=== PATIENT | female | born 1970 | race African-American/Black ===

== ENCOUNTER 2017-04-22 16:37 | Emergency (ER) | payer SELFPAY ==
[~2017-04-22] VITALS: Ht 167.6 cm; Wt 83.6 kg
[2017-04-22] MEDS ORDERED: SPIR25 PO (16:52)
[2017-04-22] MEDS ORDERED: HYDR25TA PO (16:52)
[2017-04-22] MEDS ORDERED: AMLO1TAB12 PO (16:52)
[2017-04-22 17:33] VITALS: BP 128/81
== END 2017-04-22 17:57 | disposition home or self-care (01) ==
LOC: EMS 16:39
DX: T63.481A Toxic effect of venom of other arthropod, accidental (unintentional), initial encounter (principal); S50.362A Insect bite (nonvenomous) of left elbow, initial encounter; S80.861A Insect bite (nonvenomous), right lower leg, initial encounter; L08.9 Local infection of the skin and subcutaneous tissue, unspecified; I10 Essential (primary) hypertension; W57.XXXA Bitten or stung by nonvenomous insect and other nonvenomous arthropods, initial encounter; Y93.89 Activity, other specified; Y92.89 Other specified places as the place of occurrence of the external cause; Y99.8 Other external cause status
CPT/HCPCS: 99283

== ENCOUNTER 2017-08-18 15:19 | Emergency (ER) | payer SELFPAY ==
[~2017-08-18] VITALS: Ht 167.6 cm; Wt 81.4 kg
[~2017-08-18 15:19] MED LIST: AMLO1TAB12 PO; HYDR25TA PO; SPIR25 PO
[2017-08-18 16:10] VITALS: BP 155/95
== END 2017-08-18 17:47 | disposition left against medical advice (07) ==
LOC: EMS 15:20
DX: S81.859A Open bite, unspecified lower leg, initial encounter (principal); Z53.21 Procedure and treatment not carried out due to patient leaving prior to being seen by health care provider

== ENCOUNTER 2018-03-31 08:02 | Emergency (ER) | payer OTHER ==
[~2018-03-31] VITALS: Ht 167.6 cm; Wt 77.3 kg
[2018-03-31] MEDS ORDERED: KETOROLAC TROMETHAMINE 30 MG/ML VIAL IM ONE (11:15)
[2018-03-31 11:38] VITALS: BP 137/96
== END 2018-03-31 11:49 | disposition home or self-care (01) ==
LOC: EMS 08:03
DX: M77.32 Calcaneal spur, left foot (principal); I10 Essential (primary) hypertension
CPT/HCPCS: 73630; 96372; 99284; J1885

== ENCOUNTER 2018-08-21 12:51 | Emergency (ER) | payer OTHER ==
[~2018-08-21] VITALS: Ht 167.6 cm; Wt 75.0 kg
[2018-08-21 15:59] VITALS: BP 135/83
== END 2018-08-21 16:20 | disposition home or self-care (01) ==
LOC: EMS 12:53
DX: G51.0 Bell's palsy (principal); I10 Essential (primary) hypertension; Z90.710 Acquired absence of both cervix and uterus